=== PATIENT | male | born 1960 | race African-American/Black ===

== ENCOUNTER 2022-12-30 14:46 | Emergency (ER) | payer MEDICARE, SELFPAY ==
[2022-12-30 15:07] VITALS: BP 172/110; PULSE 73; RESP 16; TEMP 37.3; O2SAT 99
--- NOTE | 2022-12-30 16:01 | ED.EYEPROB ---
HPI - Eye Problem General Chief complaint: Eye Problems Stated complaint: left eye red Time Seen by Provider: 12/30/22 15:54 Source: patient, family (Daughters) and RN notes reviewed Mode of arrival: ambulatory Limitations: no limitations History of Present Illness HPI Narrative: Daughter presents patient today complaining of redness to the left eye. Patient states he woke up with the redness to his eye this morning and denies any sort of injury or trauma. Denies pain, itching, drainage, vision changes, photophobia. Patient does take Eliquis. Related Data Home Medications Medication Instructions Recorded Confirmed amlodipine 10 mg tablet 10 mg PO DAILY 12/30/22 12/30/22 apixaban 5 mg tablet (Eliquis) 5 mg PO BID 12/30/22 12/30/22 metformin 500 mg tablet,extended 500 mg PO DAILY 12/30/22 12/30/22 release 24 hr spironolactone 25 1 tablet PO DAILY 12/30/22 12/30/22 mg-hydrochlorothiazide 25 mg tablet Allergies Allergy/AdvReac Type Severity Reaction Status Date / Time No Known Allergies Allergy Verified 12/30/22 15:25 Review of Systems Review of Systems: CONSTITUTIONAL: Denies body aches, fever, chills, or sweats. EYES: Denies visual changes, or discharge.+ left eye redness ENT: Denies rhinorrhea, congestion, sore throat, or otalgia. CARDIOVASCULAR: Denies chest pain, palpitations, or edema. RESPIRATORY: Denies cough or dyspnea. GASTROINTESTINAL: Denies abdominal pain, nausea, vomiting, or diarrhea. GENITOURINARY: Denies dysuria or hematuria. SKIN: Denies rash, itching, or wounds. MUSCULOSKELETAL: Denies back pain, joint pain, or myalgia. NEUROLOGIC: Denies headache, numbness, tingling, or weakness. PSYCH: Denies depression or anxiety. [facility] [place] Past Medical History Medical History (Updated 12/30/22 @ 16:05 by Sarah Bolaños, [employer], ) Diabetes Hypertension Comments At time of signature, I have reviewed and agree with nursing past medical, surgical, social and family history unless otherwise noted. Please see nursing chart for further information. There is no relevant family history pertinent to the presenting complaint Exam Narrative: GENERAL: Well-appearing, well-nourished, and in no acute distress. HEAD: Normocephalic, atraumatic. EYES: EOMI. PERRL. Right eye normal. Left eye with subconjunctival hemorrhage of the lateral half. Lids and lashes normal. ENT: Mucous membranes pink and moist. NECK: Normal AROM. CHEST: No respiratory distress. EXTREMITIES: Normal range of motion. No edema. SKIN: Warm, dry, no rash. Capillary refill normal. Normal skin turgor. NEURO: No focal deficits. Alert and oriented x3. Gait steady. PSYCH: Normal affect. No signs of depression or anxiety. Course Course Level of Care: Express Care Visit Vital Signs Vital signs: Vital Signs Temperature 99.1 F 12/30/22 15:07 Pulse Rate 73 12/30/22 15:07 Respiratory Rate 16 12/30/22 15:07 Blood Pressure 172/110 H 12/30/22 15:07 Pulse Oximetry 99 12/30/22 15:07 Oxygen Delivery Room Air 12/30/22 15:07 Temperature 99.1 F 12/30/22 15:07 Pulse Rate 73 12/30/22 15:07 Respiratory Rate 16 12/30/22 15:07 Blood Pressure 172/110 H 12/30/22 15:07 Pulse Oximetry 99 12/30/22 15:07 Oxygen Delivery Room Air 12/30/22 15:07 Reviewed. Pt has been instructed to follow up with his PCP regarding his elevated blood pressure today. MDM - Eye Problem MDM Narrative Medical decision making narrative: Patient denies any constipation, recent cough for sneezing, or injury to the eye. Discussed causes of subconjunctival hemorrhages and path of healing. No prescription medications indicated at this time. Anticipatory guidance given. Differential Diagnosis Differential diagnosis: Likely corneal abrasion, conjunctivitis and subconjunctival hemorrhage Critical Care Time Critical Care Time Critical Care Time: No Discharge Plan Discharge Clinical Impression: Non-traumatic subconj
== END 2022-12-30 16:12 | disposition home or self-care (01) ==
PROVIDERS: Emergency Provider Nurse Practitioner; PCP Family Medicine
DX: H11.32 Conjunctival hemorrhage, left eye (principal); E11.9 Type 2 diabetes mellitus without complications; I10 Essential (primary) hypertension; Z79.84 Long term (current) use of oral hypoglycemic drugs
CPT/HCPCS: 99211; G0463